=== PATIENT | male | born 1965 | race Two or more races ===

== ENCOUNTER 2017-08-04 00:43 | Emergency (ER) | payer OTHER ==
[~2017-08-04] VITALS: Ht 175.3 cm; Wt 102.2 kg
[2017-08-04] MEDS ORDERED: IBUPROFEN 800 MG TABLET PO STA (04:10)
[2017-08-04] MEDS ORDERED: DEXAMETHASONE 4 MG TABLET PO STA (04:10)
[2017-08-04] MEDS ORDERED: DEXAMETHASONE 4 MG TABLET ONE (04:17)
[2017-08-04] MEDS ORDERED: IBUPROFEN 200 MG TABLET ONE (04:17)
[2017-08-04] MEDS ORDERED: ALBUTEROL SULFATE 2.5 MG/3 ML NPPB ONE (04:30)
[2017-08-04] MEDS ORDERED: ALBUTEROL SULFATE 2.5 MG/3 ML ONE (04:35)
[2017-08-04 04:49] VITALS: BP 129/74
[2017-08-04] MEDS ORDERED: AZITHROMYCIN 250 MG TABLET ONE (05:49)
[2017-08-04] MEDS ORDERED: AZITHROMYCIN 500 MG TABLET PO SCH (06:00)
== END 2017-08-04 05:59 | disposition home or self-care (01) ==
LOC: ED 05:53
DX: J90 Pleural effusion, not elsewhere classified (principal); J40 Bronchitis, not specified as acute or chronic
CPT/HCPCS: 71046; 99284; J7613